=== PATIENT | male | born 1960 | race Caucasian/White ===

== ENCOUNTER → 2018-09-01 | Day surgery (SDC) | payer BC, MEDICARE ==
[~2018-09-01] MED LIST: Glycopyrrolate 0.2 MG/ML SDV IVPUSH ONE; HYDROmorphone 1 MG/ML Syringe IV ONE; Lactated Ringers 1,000 ML IV SCH; Midazolam 1 MG/ML 2 ML SDV IV ONE; Neostigmine Methylsulfate 10 MG/10 ML MDV IV ONE; Ondansetron 4 MG/2 ML SDV IV ONE; Propofol 200 MG/20 ML SDV IV ONE; Rocuronium 50 MG/5 ML Vial IV ONE; fentaNYL 100 MCG/2 ML SDV IV ONE
[2018-09-01 13:57] VITALS: BP 122/63
--- NOTE | 2018-09-01 14:02 | OR ---
DATE OF OPERATION: 09/01/2018 PREOPERATIVE DIAGNOSIS: ABDOMINAL PAIN. POSTOPERATIVE DIAGNOSIS: ABDOMINAL PAIN. SURGEON: Calvin Lozano MD PROCEDURE: DIAGNOSTIC LAPAROSCOPY WITH LYSIS OF ADHESIONS AND EVA-CUT NEEDLE BIOPSY OF LIVER X2. ANESTHESIA: General. ESTIMATED BLOOD LOSS: Minimum. SPECIMEN: Biopsy. FINDINGS: Some adhesions of the left lobe of the liver to the diaphragm. The patient did not have an internal hernia. No other intestinal abnormalities were noted. He has known macronodular cirrhosis of the liver. INDICATIONS: This 58-year-old male has had laparoscopic gastric bypass almost 15 years ago. He has had remarkable weight loss and has maintained that. He, however, does have moderate abdominal pain. He has had workup of upper GI endoscopy and colonoscopy. He has had CT scans. These have all been unremarkable. By history, it sounds like this is postprandial and it is possibly related to an internal hernia. DESCRIPTION OF PROCEDURE: After adequate preparation, an infraumbilical incision was made. A Veress needle placed intra-abdominally. The abdomen was then insufflated. Two other five trocars were placed under direct vision. Examination did show macronodular cirrhosis of the liver. A photograph of the right and left lobe of the liver was taken. The transverse colon and omentum were elevated up over the liver to expose the Sj-en-Y limb of the anastomosis. This was followed down to the jejunojejunostomy and then distally to the ileocecal valve. No abnormalities in the small bowel were noted. The small bowel was then run backwards from the ileocecal valve all the way up to the jejunojejunostomy. The duodenal limb of the Sj-en-Y was identified and there was no evidence of hernias in the transverse mesocolon or the Whittaker space underneath the duodenum. The omental openings were normal. He did have a moderate amount of adhesions of the left lobe of the liver to the diaphragm. These were taken down by cautery dissection. A Eva-Cut needle was then inserted through a stab incision in the upper abdomen and biopsy x2 of the liver was taken. The abdomen was desufflated and the skin closed with Vicryl. TARIQ/COLTON /[id number]
== END ==
LOC: CC.SDS 08:00
PROVIDERS: ATTEND Surgery
DX: K74.69 Other cirrhosis of liver (principal); E11.9 Type 2 diabetes mellitus without complications; G47.30 Sleep apnea, unspecified; Z79.82 Long term (current) use of aspirin; Z79.899 Other long term (current) drug therapy; Z87.891 Personal history of nicotine dependence
CPT/HCPCS: J1170; J2250; J2405; J2704; J2710; J3010; J3490; J7120

== ENCOUNTER → 2018-10-07 | Day surgery (SDC) | payer BC, MEDICARE ==
[~2018-10-07] MED LIST changes: +Benzocaine 20% Oral Spray 59.2 ML Canister MUCMEM ONE; -Glycopyrrolate 0.2 MG/ML SDV IVPUSH ONE; -HYDROmorphone 1 MG/ML Syringe IV ONE; +Lactated Ringers 1,000 ML ONE; +Midazolam 1 MG/ML 2 ML SDV ONE; -Neostigmine Methylsulfate 10 MG/10 ML MDV IV ONE; -Ondansetron 4 MG/2 ML SDV IV ONE; -Propofol 200 MG/20 ML SDV IV ONE; -Rocuronium 50 MG/5 ML Vial IV ONE; -fentaNYL 100 MCG/2 ML SDV IV ONE
[2018-10-07 10:39] VITALS: BP 111/65
--- NOTE | 2018-10-07 12:39 | OR ---
DATE OF OPERATION: 10/07/2018 PREOPERATIVE DIAGNOSIS: EPIGASTRIC ABDOMINAL PAIN, HISTORY OF MARGINAL ULCER. POSTOPERATIVE DIAGNOSIS: EPIGASTRIC ABDOMINAL PAIN, HISTORY OF MARGINAL ULCER. SURGEON: Calvin Lozano MD PROCEDURE: EGD WITH PHOTOGRAPHS. ANESTHESIA: Conscious sedation with 4 mg of IV Versed. SPECIMEN: None. FINDINGS: Normal EGD. RECOMMENDATIONS: Follow up as needed. No specific therapy. INDICATION FOR PROCEDURE: This 58-year-old male has had a prior Sj-en-Y gastric bypass. He has a history of marginal ulcers that was seen on EGD two years ago. He has moderate abdominal pain, which some sound like characteristic of a recurrent or continuing ulcer. He had a diagnostic laparoscopy a month ago looking for internal hernias or adhesions and that exam was perfectly normal. EGD was recommended. DESCRIPTION OF PROCEDURE: After adequate preparation, a gastroscope was inserted into the esophagus. This was passed down to the distal esophagus. It shows no evidence of esophageal pathology. No esophagitis and no hernia. The scope was advanced into the gastric pouch and this appeared to be normal. There were no abnormalities within the pouch itself. I could easily see the gastrojejunal anastomosis and this is not strictured and a typical marginal ulcer which would be found on the intestinal side was not there. I could easily pass the scope down the Y limb of the jejunum for almost 2 feet and there was no pathology in that portion, so in any event, he does not have anastomotic stricture or marginal ulcer. Air was suctioned from the pouch. Photograph had been taken of the anastomosis and the scope was removed. TARIQ/COLTON /[id number]
== END ==
LOC: CC.SDS 08:15
PROVIDERS: ATTEND Surgery
DX: R10.13 Epigastric pain (principal); I10 Essential (primary) hypertension; K58.9 Irritable bowel syndrome, unspecified; E11.9 Type 2 diabetes mellitus without complications; Z79.82 Long term (current) use of aspirin; Z87.891 Personal history of nicotine dependence; Z79.899 Other long term (current) drug therapy
CPT/HCPCS: 43235; J2250; J7120

== ENCOUNTER 2021-06-11 18:51 | Emergency (ER) | payer BC, MEDICARE ==
[2021-06-11] MEDS ORDERED: Acetaminophen/HYDROcodone 325-5 MG Tab ONE (19:37)
[2021-06-11] MEDS ORDERED: Amoxicillin/Clavulanate K 875-125 MG Tab ONE (19:37)
[2021-06-11] MEDS: Acetaminophen/HYDROcodone 325-5 MG Tab PO ONE (19:50)
[2021-06-11] MEDS: Diphtheria,Pertussis(Acell),Tetanus Vaccine 0.5 ML Syringe IM ONE (19:58)
[2021-06-11] MEDS: Take Home: Acetaminophen/HYDROcodone 325-5 MG, 2 Tab Pack PO ONE (20:03)
[2021-06-11] MEDS: Bacitracin/Neomycin/Polymyxin B Oint 0.9 GM U/D Packet TOP ONE (20:04)
[2021-06-11] MEDS: Take Home: Amoxicillin/Clavulanate K 875-125 MG Tab, 2 Tab Pack PO ONE (20:04)
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
[2021-06-11 21:38] VITALS: BP 125/76; PULSE 63
== END 2021-06-11 20:15 | disposition home or self-care (01) ==
LOC: CC.ED 18:51
DX: S61.532A Puncture wound without foreign body of left wrist, initial encounter (principal); E11.9 Type 2 diabetes mellitus without complications; Z79.4 Long term (current) use of insulin; Z79.82 Long term (current) use of aspirin; Z23 Encounter for immunization; W34.010A Accidental discharge of airgun, initial encounter
CPT/HCPCS: 73130-LT; 90471; 90715; 99284-25; A9270-GY